=== PATIENT | female | born 2000 | race Caucasian/White ===

== ENCOUNTER 2024-09-21 05:50 | Inpatient (IN) | payer BC ==
[2024-09-21] MEDS ORDERED: CARBOPROST TROMETHAMINE 250 MCG/ML 1 ML AMP IM PRN (06:13)
[2024-09-21] MEDS ORDERED: TERBUTALINE 1 MG/ML VIAL SQ PRN (06:13)
[2024-09-21] MEDS ORDERED: LIDOCAINE 0.5% (PF) 5 MG/ML (50 ML SDV) SQ PRN (06:13)
[2024-09-21] MEDS ORDERED: miSOPROStoL 200 MCG TAB PO PRN (06:13)
[2024-09-21] MEDS ORDERED: OXYTOCIN 10 UNIT/ML 1 ML VIAL IM PRN (06:13)
[2024-09-21] MEDS ORDERED: miSOPROStoL 200 MCG TAB RECTAL PRN (06:13)
[2024-09-21] MEDS ORDERED: METHYLERGONOVINE 0.2 MG/ML 1 ML AMP IM PRN (06:13)
[2024-09-21] MEDS ORDERED: TRANEXAMIC 1,000 MG/100ML-NACL 1,000 MG in EMPTY BAG 1 BAG IV PRN (06:13)
[2024-09-21] MEDS: LACTATED RINGERS 1,000 ML IV SCH (06:20)
[2024-09-21] MEDS: OXYTOCIN 30 UNITS/500 ML NS 30 UNIT in SALINE 1 500ML.BAG IV SCH (06:30)
[2024-09-21 06:53] LABS: Basophils % (A) 0 %; Eosinophils # (A) 0.1 k/uL (0-0.7); Eosinophils % (A) 1 %; HCT 36.9 % (34.0-46.0); HGB 11.8 gm/dL (11.4-16.0); Hypochromasia Slight; Lymphocytes # (A) 1.3 k/uL (1.0-4.8); Lymphocytes % (A) 10 %; MCH 26.4 pg (25.0-35.0); MCHC 31.8 g/dL (31.0-37.0); MCV 82.9 fL (80.0-100.0); Mean Platelet Volume 9.1; Monocytes # (A) 0.9 k/uL (0-1.0); Monocytes % (A) 7 %; Neutrophils % (A) 82 %; Platelet Count 293 k/uL (150-450); RBC 4.45 m/uL (3.80-5.40); RDW 13.9 % (11.5-15.5); WBC 13.3 k/uL (3.8-10.6)
[2024-09-21] MEDS ORDERED: SODIUM CHLORIDE 0.9% 250 ML BAG ONE (09:08)
[2024-09-21] MEDS ORDERED: ROPIVACAINE 5 MG/ML 30 ML VIAL ONE (09:08)
[2024-09-21] MEDS ORDERED: fentaNYL (PF) 50 MCG/ML 5 ML AMP ONE (09:08)
--- NOTE | 2024-09-21 09:20 | P.HPOB ---
History of Present Illness H&P Date: 09/21/24 Chief Complaint: induction of labor 24 year old presents at 41 weeks for induction of labor. HEr cervix is 3/70/-2. She is alma every few minutes and heart tones are category 1. Review of Systems All systems: negative Constitutional: Denies chills, Denies fever Eyes: denies blurred vision, denies pain Ears, nose, mouth and throat: Denies headache, Denies sore throat Cardiovascular: Denies chest pain, Denies shortness of breath Respiratory: Denies cough Gastrointestinal: Denies abdominal pain, Denies diarrhea, Denies nausea, Denies vomiting Genitourinary: Denies dysuria, Denies hematuria Musculoskeletal: Denies myalgias Integumentary: Denies pruritus, Denies rash Neurological: Denies numbness, Denies weakness Psychiatric: Denies anxiety, Denies depression Endocrine: Denies fatigue, Denies weight change Past Medical History Past Medical History: No Reported History History of Any Multi-Drug Resistant Organisms: None Reported Past Surgical History: Tonsillectomy Past Anesthesia/Blood Transfusion Reactions: No Reported Reaction Past Psychological History: No Psychological Hx Reported Smoking Status: Never smoker Past Alcohol Use History: None Reported Past Drug Use History: None Reported Medications and Allergies Home Medications Medication Instructions Recorded Confirmed Type Vit No.179/Iron/Folic 1 each PO 09/21/24 History [ Tablet] Allergies Allergy/AdvReac Type Severity Reaction Status Date / Time No Known Allergies Allergy Verified 09/21/24 06:12 Exam Osteopathic Statement: *. No significant issues noted on an osteopathic structural exam other than those noted in the History and Physical/Consult. Vital Signs Temp Pulse Resp BP Pulse Ox 09/21/24 06:11 98.8 F 120 H 15 138/92 98 Intake and Output 09/20/24 09/21/24 09/21/24 22:59 06:59 14:59 Other: Weight 99.79 kg Heart: Regular rate and rhythm Lungs: Clear to auscultation bilaterally Abdomen: Soft, nontender Extremities: Negative Homans sign Results Result Diagrams: 09/21/24 06:14 Abnormal Lab Results - Last 24 Hours (Table) 09/21/24 Range/Units 06:14 WBC 13.3 H (3.8-10.6) k/uL Neutrophils # 11.0 H (1.3-7.7) k/uL Assessment and Plan (1) Encounter for induction of labor Current Visit: Yes Status: Acute Code(s): Z34.90 - ENCNTR FOR SUPRVSN OF NORMAL , UNSP, UNSP TRIMESTER SNOMED Code(s): 723782031 Plan: 1. induction of labor with amniotomy and pitocin 2. anticipate normal vaginal delivery
[2024-09-22] MEDS: AMPICILLIN 2,000 MG in SODIUM CHLORIDE 0.9% 100 ML IVPB ONE (01:25)
[2024-09-22] MEDS: AMPICILLIN 1,000 MG in SODIUM CHLORIDE 0.9% 50 ML IVPB SCH (05:24)
[2024-09-22] MEDS: diphenhydrAMINE 50 MG/ML 1 ML VIAL IVP STA (09:10)
[2024-09-22] MEDS ORDERED: CARBOPROST TROMETHAMINE 250 MCG/ML 1 ML AMP IM PRN (12:49)
[2024-09-22] MEDS ORDERED: miSOPROStoL 200 MCG TAB PO PRN (12:49)
[2024-09-22] MEDS ORDERED: TRANEXAMIC 1,000 MG/100ML-NACL 1,000 MG in EMPTY BAG 1 BAG IV PRN (12:49)
[2024-09-22] MEDS ORDERED: METHYLERGONOVINE 0.2 MG/ML 1 ML AMP IM PRN (12:49)
[2024-09-22] MEDS ORDERED: OXYTOCIN 10 UNIT/ML 1 ML VIAL IM PRN (12:49)
[2024-09-22] MEDS: CITRIC ACID-SODIUM CITRATE 15 ML CUP PO ONE (13:25)
[2024-09-22] MEDS ORDERED: OXYTOCIN 30 UNITS/500 ML NS BAG IV ONE (13:55)
[2024-09-22] MEDS ORDERED: ONDANSETRON 4 MG/2 ML VIAL ONE (13:55)
[2024-09-22] MEDS ORDERED: PROPOFOL 10 MG/ML 20 ML VIAL IV ONE (13:55)
[2024-09-22] MEDS ORDERED: SUCCINYLCHOLINE CHLORIDE 200 MG/10 ML VIAL IV ONE (13:55)
[2024-09-22] MEDS ORDERED: MORPHINE SULFATE (PF) 0.3 MG/0.3 ML SYR ONE (13:55)
[2024-09-22] MEDS ORDERED: KETOROLAC 15 MG/ML 1 ML VIAL ONE (13:55)
[2024-09-22] MEDS ORDERED: fentaNYL (PF) 50 MCG/ML 2 ML AMP ONE (13:55)
[2024-09-22] MEDS ORDERED: ZOLPIDEM 5 MG TAB PO PRN (15:06)
[2024-09-22] MEDS ORDERED: diphenhydrAMINE 50 MG/ML 1 ML VIAL IVP PRN ×2 (15:06)
[2024-09-22] MEDS ORDERED: ONDANSETRON 4 MG/2 ML VIAL IVP PRN (15:06)
[2024-09-22] MEDS ORDERED: SIMETHICONE 80 MG CHEWABLE PO PRN (15:06)
[2024-09-22] MEDS ORDERED: NALOXONE 0.4 MG/ML 1 ML VIAL IV PRN ×2 (15:06→15:46)
[2024-09-22] MEDS ORDERED: METOCLOPRAMIDE 5 MG/ML 2 ML VIAL IVP PRN (15:06)
[2024-09-22] MEDS ORDERED: diphenhydrAMINE 50 MG CAP PO PRN (15:06)
[2024-09-22] MEDS ORDERED: diphenhydrAMINE 25 MG CAP PO PRN (15:06)
[2024-09-22] MEDS ORDERED: OXYTOCIN 30 UNITS/500 ML NS 30 UNIT in SALINE 1 500ML.BAG IV SCH (15:15)
[2024-09-22] MEDS: ACETAMINOPHEN TAB 500 MG TAB PO SCH (18:39)
[2024-09-22] MEDS: KETOROLAC 15 MG/ML 1 ML VIAL IVP SCH (20:47)
[2024-09-22] MEDS: SENNOSIDES-DOCUSATE SODIUM 1 EACH TAB PO SCH (20:48)
[2024-09-22] MEDS: LACTATED RINGERS 1,000 ML IV SCH (20:49)
[2024-09-23 06:25] LABS: MCV 82.8 fL (80.0-100.0); RBC 3.62 m/uL (3.80-5.40); WBC 18.1 k/uL (3.8-10.6)
[2024-09-23 06:26] LABS: Basophils % (A) 0 %; Eosinophils % (A) 0 %; Lymphocytes # (A) 0.9 k/uL (1.0-4.8); Lymphocytes % (A) 5 %; MCH 26.4 pg (25.0-35.0); MCHC 31.9 g/dL (31.0-37.0); Mean Platelet Volume 9.5; Monocytes % (A) 6 %; Neutrophils # (A) 15.8 k/uL (1.3-7.7); Neutrophils % (A) 87 %; Platelet Count 230 k/uL (150-450); RDW 14.6 % (11.5-15.5)
[2024-09-23 06:40] LABS: HGB 9.6 gm/dL (11.4-16.0)
--- NOTE | 2024-09-23 07:01 | P.PN ---
Progress Note - Text Progress Note Date: 09/23/24 Ms. Fields is a 24-year-old female had a history of under general anesthesia after failed partial epidural analgesia. Patient received preservative free Morphine 400 mcg at the end of the procedure for postoperative pain control. Today patient is comfortable sitting in her bed. Today patient rated her pain levels 3-4 out of 10 in severity at the incision site. Denied any fever, drowsiness, confusion. Denied any weakness, tingling sensation in her lower extremities. Denied any bowel or bladder problems. Moving all extremities without any difficulty, and able to walk without any difficulties. She is complaining of mild itching. As per patient which is bearable with help of medications. Vitals: Hemodynamically stable Continue oral pain medication as per primary team. No complications related to anesthesia. Please contact anesthesia services if needed.
--- NOTE | 2024-09-23 07:49 | P.OP ---
Date of Procedure: 09/22/24 Preoperative Diagnosis: 1. arrest of descent 2. failed induction 3. at 41 weeks 1 day Postoperative Diagnosis: 1. arrest of descent 2. failed induction 3. at 41 weeks 1 day Procedure(s) Performed: Primary low transverse Anesthesia: JAVAN Surgeon: Elsa Hurt Patient Financial Advocate #1: Brianne Oreilly Estimated Blood Loss (ml): 500 IV fluids (ml): 1,000 Urine output (ml): 200 Pathology: none sent Condition: stable Disposition: floor Indications for Procedure: A 24-year-old presented at 41 weeks for induction of labor. She is alma irregularly and her cervix was 2-37 m dilated, 70% effaced, and -2 station. Category 1 heart tones. Amniotomy was performed at 7:35 AM on 09/21/2024, or fluid noted. Pitocin was also started. She progressed very slowly throughout the day and when she was uncomfortable she did get an epidural. She had several position changes and Pitocin augmentation continued. Her cervix was completely dilated over 24 hours later at 9:50 AM. She pushed for 3 hours with little descent. Patient Center huddle was done at bedside. Informed consent was obtained and section was called. Description of Procedure: Patient was taken to the operating room where Epidural anesthesia was found To BE week on the right side. She underwent general anesthesia without complication. She was prepped and draped in normal sterile fashion in dorsal supine position with a leftward tilt. Pfannenstiel skin incision was made the scalpel and carried through to the underlying layer of fascia with the scalpel. Fascia was incised in midline and carried bilaterally with the Vilchis scissors. The superior aspect of the fascial incision was grasped with Mellisa clamps elevated and the underlying rectus muscles dissected off with the Vilchis's. Attention was then turned to inferior aspect of same incision which in a similar fashion was grasped tented up and the underlying rectus muscles dissected off with the Vilchis's. The rectus muscles were the midline and the peritoneum was identified tented up and entered sharply with the scalpel. The incision was extended superiorly and inferiorly with good visualization of the bladder. The bladder blade was inserted and the vesicouterine peritoneum was incised the Metzenbaums then carried bilaterally and bladder flap created digitally. A low transverse incision was then made on the uterus with the scalpel. This was carried bilaterally and digital manner. When the incision was made on the uterus meconium-stained fluid was noted. Infant's head delivered atraumatically, nose and mouth bulb suctioned, cord clamped and cut, handed off to waiting nurses. Apgars 2 at one minute,8 at 5 minutes and 9 at 10 minutes, weight 8 lbs. 5 oz. Placenta delivered manually, intact with three- vessel cord. The uterus is exteriorized and cleared of all clots and debris. The uterine incision was closed with 0 Vicryl in a running locked fashion. Second layer of the same sutures used in imbricating fashion to obtain excellent hemostasis. Both ovaries and tubes appeared normal. The uterus was placed back into the abdomen. The fascia was reapproximated using 0 Vicryl in a running fashion. The subcutaneous tissues closed with 3-0 Vicryl running fashion. The skin was closed brianne. Patient tolerated the procedure well, sponge and instrument counts were correct times 2 and she was taken to the recovery room in stable condition.
--- NOTE | 2024-09-23 07:50 | P.PNOBGPC ---
Subjective - Subjective Principal diagnosis: Status post primary low transverse postop day 1 Interval history: Patient seen and examined. Denies nausea, vomiting, chest pain, shortness of breath or calf pain. Patient reports: Reports appetite normal, Reports voiding normally, Reports pain well controlled, Reports ambulating normally [place]: doing well Objective - Vital Signs Latest vital signs: Vital Signs Temp Pulse Resp BP Pulse Ox 09/23/24 04:06 98.3 F 87 18 130/75 09/22/24 21:00 100 09/22/24 20:06 98.4 F 94 18 125/78 09/22/24 16:50 97.6 F 100 15 136/82 98 09/22/24 16:20 82 16 136/79 97 09/22/24 16:00 82 16 97 09/22/24 15:50 96 16 132/75 96 09/22/24 15:35 79 16 120/69 95 09/22/24 15:20 77 15 127/72 94 L 09/22/24 15:05 78 15 131/75 95 09/22/24 14:50 98.2 F 88 14 145/86 93 L Intake and Output 09/22/24 09/23/24 09/23/24 22:59 06:59 14:59 Intake Total 1900 Output Total 1562 800 Balance 338 -800 Intake: Intake, IV Titration 500 Amount Oxytocin 30 Units/500 ml 500 Ns 30 unit In Saline 1 500ml.bag @ Per Protocol IV .Q0M [facility] Rx#:[id number] Oral 1400 Output: Urine 400 800 Uretheral (Candelaria) 400 800 Output, Estimated Blood 562 Loss Amount Output, Quantitative 600 Blood Loss Other: # Voids 2 - Exam Lungs: bilateral: normal Chest: Normal S1, Normal S2 Extremities: Present: normal Abdomen: Present: normal appearance, soft. Absent: distention, tenderness Incision: Present: normal, dry, intact Uterus: Present: normal, firm - Labs Labs: Abnormal Lab Results - Last 24 Hours (Table) 09/23/24 Range/Units 06:08 WBC 18.1 H (3.8-10.6) k/uL RBC 3.62 L (3.80-5.40) m/uL Hgb 9.6 L D (11.4-16.0) gm/dL Hct 30.0 L (34.0-46.0) % Neutrophils # 15.8 H (1.3-7.7) k/uL Lymphocytes # 0.9 L (1.0-4.8) k/uL Assessment and Plan (1) Encounter for induction of labor Current Visit: Yes Status: Resolved Code(s): Z34.90 - ENCNTR FOR SUPRVSN OF NORMAL , UNSP, UNSP TRIMESTER SNOMED Code(s): 213019070 (2) Status post primary low transverse section Current Visit: Yes Status: Acute Code(s): Z98.891 - HISTORY OF UTERINE SCAR FROM PREVIOUS SURGERY SNOMED Code(s): 696497429 Plan: 1. Increase ambulation 2. By mouth pain medication
[2024-09-23] MEDS: IBUPROFEN 800 MG TAB PO SCH (20:23)
[2024-09-24 00:55] VITALS: RESP 16
[2024-09-24 06:57] LABS: Basophils % (A) 0 %; Eosinophils # (A) 0.2 k/uL (0-0.7); Eosinophils % (A) 1 %; HCT 26.3 % (34.0-46.0); HGB 8.5 gm/dL (11.4-16.0); Hypochromasia Moderate; Lymphocytes # (A) 1.4 k/uL (1.0-4.8); Lymphocytes % (A) 10 %; MCH 27.4 pg (25.0-35.0); MCHC 32.2 g/dL (31.0-37.0); Mean Platelet Volume 8.9; Monocytes # (A) 0.7 k/uL (0-1.0); Monocytes % (A) 5 %; Neutrophils # (A) 12.3 k/uL (1.3-7.7); Neutrophils % (A) 83 %; Platelet Count 203 k/uL (150-450); RDW 14.5 % (11.5-15.5); WBC 14.8 k/uL (3.8-10.6)
--- NOTE | 2024-09-24 07:36 | P.PNOBGPC ---
Subjective - Subjective Principal diagnosis: S/P 1*LTCS POD #1 Interval history: She was seen and examined. Denies nausea, vomiting, chest pain, shortness of breath or calf pain. Patient reports: Reports appetite normal, Reports voiding normally, Reports pain well controlled, Reports ambulating normally [place]: doing well Objective - Vital Signs Latest vital signs: Vital Signs Temp Pulse Resp BP Pulse Ox 09/24/24 04:00 75 16 09/24/24 00:52 97.4 F L 75 16 132/86 97 09/23/24 17:30 100.5 F H 110 H 20 130/85 97 09/23/24 12:00 98.8 F 90 20 120/78 97 09/23/24 08:00 98.9 F 89 20 115/79 97 Intake and Output 09/23/24 09/24/24 09/24/24 22:59 06:59 14:59 Other: Voiding Method Toilet Toilet # Voids 2 1 - Exam Lungs: bilateral: normal Chest: Normal S1, Normal S2 Extremities: Present: normal Abdomen: Present: normal appearance, soft. Absent: distention, tenderness Incision: Present: normal, dry, intact Uterus: Present: normal, firm - Labs Labs: Abnormal Lab Results - Last 24 Hours (Table) 09/24/24 Range/Units 06:44 WBC 14.8 H (3.8-10.6) k/uL RBC 3.10 L (3.80-5.40) m/uL Hgb 8.5 L (11.4-16.0) gm/dL Hct 26.3 L (34.0-46.0) % Neutrophils # 12.3 H (1.3-7.7) k/uL Assessment and Plan (1) Encounter for induction of labor Current Visit: Yes Status: Resolved Code(s): Z34.90 - ENCNTR FOR SUPRVSN OF NORMAL , UNSP, UNSP TRIMESTER SNOMED Code(s): 235246410 (2) Status post primary low transverse section Current Visit: Yes Status: Acute Code(s): Z98.891 - HISTORY OF UTERINE SCAR FROM PREVIOUS SURGERY SNOMED Code(s): 321477303 Plan: 1. Increase ambulation 2. Regular diet 3. Pain control
--- NOTE | 2024-09-25 07:48 | P.DS ---
Providers Date of admission: 09/21/24 05:50 Expected date of discharge: 09/25/24 Attending physician: Elsa Hurt Primary care physician: Stated None - Discharge Diagnosis(es) (1) Encounter for induction of labor Current Visit: Yes Status: Resolved (2) Status post primary low transverse section Current Visit: Yes Status: Acute Hospital Course: Patient presented for induction of labor. She underwent a primary low transverse without complication. Her postoperative course was uneventful. She denies nausea, vomiting, chest pain, shortness of breath or calf pain. She'll be discharged home postoperative day #3 in stable condition to follow-up with me in 2 weeks. Plan - Discharge Summary New Discharge Prescriptions: No Action Vit No.179/Iron/Folic [ Tablet] 1 each PO Discharge Medication List Vit No.179/Iron/Folic [ Tablet] 1 each PO 09/21/24 [History] Follow up Appointment(s)/Referral(s): Elsa Hurt DO [Doctor of Osteopathic Medicine] - 11/02/24 1:30 pm (Post C/S appointment 10-05-2024 at 1:15pm) Discharge Disposition: HOME SELF-CARE
[2024-09-26 09:42] VITALS: BP 136/58; PULSE 65; TEMP 97.9
== END 2024-09-26 13:57 | disposition home or self-care (01) | DRG 788 ==
LOC: 4FBP 05:50
PROVIDERS: ADMIT Obstetrics & Gynecology; ATTEND Obstetrics & Gynecology
PROC: 10907ZC Drainage of Amniotic Fluid, Therapeutic from Products of Conception, Via Natural or Artificial Opening (ICD-10-PCS; 2024-09-22)
PROC: 3E033VJ Introduction of Other Hormone into Peripheral Vein, Percutaneous Approach (ICD-10-PCS; 2024-09-22)
PROC: 10D00Z1 Extraction of Products of Conception, Low, Open Approach (ICD-10-PCS; principal; 2024-09-22 13:30)
DX: O32.4XX0 Maternal care for high head at term, not applicable or unspecified (principal); O48.0 Post-term pregnancy; O61.0 Failed medical induction of labor; Z3A.41 41 weeks gestation of pregnancy; Z37.0 Single live birth
CPT/HCPCS: 85025; 86850; 86900; 86901; 88307